=== PATIENT | female | born 1970 | race Caucasian/White ===

== ENCOUNTER → 2024-04-03 10:19 | Outpatient (REF) | payer OTHER, SELFPAY | LOC: HWRAD 10:19 | PROVIDERS: ATTENDING PHYSICIAN Physician Assistant Medical | DX: R53.83 Other fatigue (principal) | CPT/HCPCS: 73030; 73502 ==

== ENCOUNTER → 2025-04-09 13:21 | Outpatient (REF) | payer OTHER, SELFPAY | LOC: HWWDC 13:21 | PROVIDERS: ATTENDING PHYSICIAN Physician Assistant Medical | DX: Z12.31 Encounter for screening mammogram for malignant neoplasm of breast (principal) | CPT/HCPCS: 77063; 77067 ==